=== PATIENT | female | born 1990 | race Caucasian/White ===

== ENCOUNTER → 2020-12-26 15:46 | Outpatient (CLI) | payer OTHER, MEDICAID, SELFPAY ==
[2020-12-26] MEDS: COVID-19 VACC #1, MRNA(MOD) 100 MCG/0.5 ML VIAL IM (15:58)
== END ==
PROVIDERS: PCP Family Medicine; Visit Provider Internal Medicine
DX: Z23 Encounter for immunization (principal)
CPT/HCPCS: 0011A; 91301

== ENCOUNTER → 2021-01-24 14:54 | Outpatient (CLI) | payer OTHER, MEDICAID, SELFPAY ==
[2021-01-24] MEDS: COVID-19 VACC #2, MRNA(MOD) 100 MCG/0.5 ML VIAL IM (15:01)
== END ==
PROVIDERS: PCP Family Medicine; Visit Provider Internal Medicine
DX: Z23 Encounter for immunization (principal)
CPT/HCPCS: 0012A; 91301

== ENCOUNTER → 2022-05-17 09:12 | Outpatient (CLI) | payer OTHER, MEDICAID, SELFPAY ==
[2022-05-17 10:31] LABS: Add Manual Diff / Slide Review NO; Basophils Absolute Auto 0 /uL (0-100); Basophils Percent Auto 0.5 % (0-2); Eosinophils Absolute Auto 200 /uL (0-450); Eosinophils Percent Auto 3.6 % (2-4); Hemoglobin 14.3 g/dL (12.0-16.0); Lymphocytes Absolute Auto 2100 /uL (1100-4500); Lymphocytes Percent Auto 43.9 % (25-40); Mean Corpuscular Hemoglobin 30.1 PG (26-34); Mean Corpuscular Volume 88.6 fL (80-100); Monocytes Absolute Auto 300 /uL (0-900); Neutrophils Absolute Auto 2200 /uL (1500-7000); Platelet Count 328 X10^3/uL (150-400); Red Blood Cell Count 4.74 X10^6/uL (4.0-5.2); Red Cell Distribution Width 12.7 % (11.6-14.8); White Blood Cell Count 4.9 X10^3/uL (4.5-11.0)
[2022-05-17 10:52] LABS: Hemoglobin A1C% w Est Avg Glu 5.5 % (4.0-6.0)
[2022-05-17 10:57] LABS: Erythrocyte Sedimentation Rate 9 MM/HR (0-20)
[2022-05-17 11:10] LABS: Alanine Aminotransferase 58 IU/L (<35); Albumin 4.3 g/dL (3.5-5.0); Alkaline Phosphatase 63 U/L (38-126); Aspartate Aminotransferase 29 IU/L (14-36); BUN Creatinine Ratio 18.1 (6-22); Bilirubin Total 0.5 mg/dL (0.2-1.3); Blood Urea Nitrogen 15 mg/dL (7-17); C-Reactive Protein Quant 0.7 mg/dL (<1.0); Calcium 9.1 mg/dL (8.4-10.2); Carbon Dioxide 30 mmol/L (22-32); Chloride 104 mmol/L (98-107); Estimated Glomerular Filt Rate > 60 mL/min (>60); Glucose 98 mg/dL (70-100); Potassium 4.5 mmol/L (3.4-5.1); Sodium 141 mmol/L (137-145); Total Protein 7.7 g/dL (6.3-8.2)
[2022-05-17 11:11] LABS: Albumin Globulin Ratio 1.3 (1.0-2.8); Cholesterol 196 mg/dL (140-199); Globulin 3.4 g/dL (1.7-4.1); HDL Cholesterol 36 mg/dL (40-60); HEMOLYSIS < 15 (0-50); LDL Cholesterol Calculated 139 mg/dL (<100); Triglycerides 105 mg/dL (35-150)
[2022-05-17 11:35] LABS: TSH w/ Reflex to FT4 1.02 uIU/mL (0.47-4.68)
[2022-05-17 11:37] LABS: Testosterone 85.5 ng/dL (5.71-77.0)
[2022-05-23 13:47] LABS: ANA Screen, IFA Negative (.)
== END ==
PROVIDERS: PCP Family Medicine; Referring Provider Family Medicine; Visit Provider Family Medicine
DX: L68.0 Hirsutism (principal); N91.2 Amenorrhea, unspecified; I73.00 Raynaud's syndrome without gangrene; R20.9 Unspecified disturbances of skin sensation
CPT/HCPCS: 36415; 80053; 80061; 83036; 83498; 84403; 84443; 85025; 85651; 86038; 86140

== ENCOUNTER → 2023-02-27 09:11 | Outpatient (CLI) | payer OTHER, MEDICAID, SELFPAY ==
[2023-02-27 10:18] LABS: Alanine Aminotransferase 30 IU/L (<35); Albumin 4.2 g/dL (3.5-5.0); Albumin Globulin Ratio 1.4 (1.0-2.8); Alkaline Phosphatase 67 U/L (38-126); Aspartate Aminotransferase 21 IU/L (14-36); BUN Creatinine Ratio 16.3 (6-22); Bilirubin Total 0.3 mg/dL (0.2-1.3); Blood Urea Nitrogen 14 mg/dL (7-17); Calcium 9.7 mg/dL (8.4-10.2); Carbon Dioxide 26 mmol/L (22-32); Chloride 103 mmol/L (98-107); Cholesterol 219 mg/dL (140-199); Estimated Glomerular Filt Rate > 60 mL/min (>60); Globulin 2.9 g/dL (1.7-4.1); Glucose 94 mg/dL (70-100); HDL Cholesterol 48 mg/dL (40-60); HEMOLYSIS < 15 (0-50); LDL Cholesterol Calculated 124 mg/dL (<100); Potassium 4.6 mmol/L (3.4-5.1); Sodium 137 mmol/L (137-145); Total Protein 7.1 g/dL (6.3-8.2); Triglycerides 237 mg/dL (35-150)
[2023-02-28 06:03] LABS: Labcorp Hemoglobin (Hb) A1c 5.2 % (4.8-5.6)
[2023-03-05 11:16] LABS: Percent Free Testosterone 1.54 % (0.50-2.80); Testosterone Free 0.93 ng/dL (0.10-0.85); Testosterone Total 60.1 ng/dL (10.0-55.0)
== END ==
PROVIDERS: PCP Family Medicine; Referring Provider Family Medicine; Visit Provider Family Medicine
DX: E28.2 Polycystic ovarian syndrome (principal); F84.0 Autistic disorder; L68.0 Hirsutism
CPT/HCPCS: 36415; 80053; 80061; 83036; 84402; 84403

== ENCOUNTER → 2024-01-01 13:44 | Outpatient (CLI) | payer OTHER, MEDICAID, SELFPAY ==
[2024-01-01 14:27] LABS: Influenza A - CEPHEID Flu A NEGATIVE (NEGATIVE); Influenza B - CEPHEID Flu B NEGATIVE (NEGATIVE); Respiratory Syncytial Virus Negative (Negative)
[2024-01-01 15:26] LABS: COVID-19 CEPHEID 4-PLEX PCR Negative (Negative)
== END ==
PROVIDERS: PCP Family Medicine; Visit Provider Nurse Practitioner Family
DX: R09.81 Nasal congestion (principal); R50.9 Fever, unspecified
CPT/HCPCS: 27400 ×2; 87635; 87420; 0241U

== ENCOUNTER → 2024-02-24 10:13 | Outpatient (CLI) | payer OTHER, MEDICAID, SELFPAY ==
[2024-02-24 11:26] LABS: Add Manual Diff / Slide Review NO; Basophils Absolute Auto 0 /uL (0-100); Basophils Percent Auto 0.3 % (0-2); Eosinophils Absolute Auto 100 /uL (0-450); Eosinophils Percent Auto 1.6 % (2-4); Hematocrit 36.7 % (36-46); Hemoglobin 12.7 g/dL (12.0-16.0); Lymphocytes Absolute Auto 2000 /uL (1100-4500); Lymphocytes Percent Auto 35.3 % (25-40); Mean Corpuscular HGB Conc 34.7 % (30-36); Mean Corpuscular Hemoglobin 30.4 PG (26-34); Mean Corpuscular Volume 87.5 fL (80-100); Monocytes Absolute Auto 400 /uL (0-900); Monocytes Percent Auto 6.5 % (3-14); Neutrophils Absolute Auto 3200 /uL (1500-7000); Neutrophils Percent Auto 56.3 % (50-75); Platelet Count 344 X10^3/uL (150-400); Red Cell Distribution Width 12.8 % (11.6-14.8); White Blood Cell Count 5.7 X10^3/uL (4.5-11.0)
[2024-02-24 11:40] LABS: Hemoglobin A1C% w Est Avg Glu 5.3 % (4.0-6.0)
[2024-02-24 11:54] LABS: Alanine Aminotransferase 21 IU/L (<35); Albumin 4.4 g/dL (3.5-5.0); Albumin Globulin Ratio 1.6 (1.0-2.8); Alkaline Phosphatase 68 U/L (38-126); Aspartate Aminotransferase 22 IU/L (14-36); BUN Creatinine Ratio 12.5 (6-22); Bilirubin Total 0.5 mg/dL (0.2-1.3); Blood Urea Nitrogen 12 mg/dL (7-17); Calcium 9.8 mg/dL (8.4-10.2); Carbon Dioxide 26 mmol/L (22-32); Chloride 103 mmol/L (98-107); Cholesterol 239 mg/dL (140-199); Estimated Glomerular Filt Rate > 60 mL/min (>60); Globulin 2.7 g/dL (1.7-4.1); Glucose 92 mg/dL (70-100); HDL Cholesterol 77 mg/dL (40-60); HEMOLYSIS < 15 (0-50); LDL Cholesterol Calculated 121 mg/dL (<100); Potassium 4.7 mmol/L (3.4-5.1); Sodium 136 mmol/L (137-145); Total Protein 7.1 g/dL (6.3-8.2); Triglycerides 205 mg/dL (35-150)
[2024-02-24 12:00] LABS: Creatinine Urine Random 26.59 mg/dL
[2024-02-24 12:08] LABS: Microalbumin Urine Random < 0.6 mg/dL (0-1.6)
[2024-02-24 12:21] LABS: TSH w/ Reflex to FT4 1.07 uIU/mL (0.47-4.68)
[2024-02-26 04:10] LABS: Apolipoprotein B 120 mg/dL (<90)
[2024-03-01 08:36] LABS: Percent Free Testosterone 1.63 % (0.50-2.80); Testosterone Free 0.82 ng/dL (0.10-0.85); Testosterone Total 50.6 ng/dL (10.0-55.0)
== END ==
PROVIDERS: PCP Family Medicine; Referring Provider Family Medicine; Visit Provider Family Medicine
DX: Z00.00 Encounter for general adult medical examination without abnormal findings (principal); E28.2 Polycystic ovarian syndrome; L68.0 Hirsutism; F84.0 Autistic disorder
CPT/HCPCS: 36415; 80053; 80061; 82043; 82172; 82570; 83036; 84402; 84403; 84443; 85025

== ENCOUNTER → 2024-07-23 12:21 | Outpatient (CLI) | payer MEDICARE, MEDICAID, SELFPAY ==
--- NOTE | 2024-07-23 12:24 | DI.RAD.S_ITS ---
PROCEDURE: FL UPPER GI SMALL BOWEL INDICATIONS: Vomiting of solids/liquids - gastroparesis(?) COMPARISON: None. FINDINGS: KUB: Preprocedural drug abuse treatment specialist film shows a normal bowel gas pattern. No suspicious abdominal calcifications. Visualized solid organ contours appear normal in size. No suspicious bony abnormalities. Esophagus: Air-contrast views demonstrate a normal mucosal pattern. On single-contrast views, there is normal peristalsis. No fixed strictures, extrinsic mass effects, or diverticula. No hiatal hernias or elicited gastroesophageal reflux. There is delayed transit of a calibrated barium tablet through the esophagus. Stomach: The gastric lumen is normally distensible, and has normal rugal fold thickness. No mucosal masses or ulcers. The pylorus and duodenal bulb have a normal morphology. Small bowel: Duodenal folds appear normal in thickness. There is normal transit time of barium through the small intestine. Small bowel loops appear normal in caliber throughout. Jejunal and ileal folds are smooth and normal in thickness. No strictures, intraluminal masses, or extrinsic mass effects. IMPRESSION: 1. Small reducible hiatal hernia. 2. Delayed passage of a calibrated barium tablet through the gastroesophageal junction. 3. Small bowel transit time within normal limits at approximately 2.5 hours. Approved by: Arnulfo Meza M.D. on 07/23/2024 at 16:27
== END ==
PROVIDERS: PCP Family Medicine; Referring Provider Family Medicine; Visit Provider Family Medicine
DX: R11.10 Vomiting, unspecified (principal); F84.0 Autistic disorder; K44.9 Diaphragmatic hernia without obstruction or gangrene
CPT/HCPCS: 74240; 74248

== ENCOUNTER 2024-10-20 14:08 | Day surgery (SDC) | payer MEDICARE, MEDICAID, SELFPAY ==
[2024-10-20] VITALS (7 sets, daily range): BP systolic 103–114; BP diastolic 61–78; PULSE 77–94; RESP 12–16; TEMP 36.2–36.4; O2SAT 92–100
--- NOTE | 2024-10-20 | PATH_ITS ---
[facility] Accession Number: [id number] No. of containers..04 Tissue . 01 Material submitted: . PART A: stomach - STOMACH PART B: small bowel - SMALL BOWEL PART C: esophagus - ESOPHAGUS PART D: colon - COLON . 01 Clinical history: . D) DIARRHEA . 01 Diagnosis: Part A: STOMACH: Gastric mucosa with minimal chronic inflammation. No Helicobacter organisms identified on H/E stain. No intestinal metaplasia, dysplasia, or malignancy identified. . Part B: SMALL BOWEL: Small bowel mucosa with no diagnostic alterations. No active inflammation and no evidence of celiac disease. . Part C: ESOPHAGUS: Squamous mucosa with no diagnostic alterations. Eosinophils are not increased. . Part D: COLON: Colonic mucosa with no diagnostic alterations. No active inflammation, granulomas, dysplasia, or malignancy identified. No evidence of colitis. [facility] 10/22/2024 1500 Local . 01 Electronically signed: . Moises Centeno MD, Pathologist NPI- [id number] . 01 Gross description: . A. Received in formalin with two patient identifiers and 1. Stomach biopsy, is a single mathews soft tissue fragment 0.5 cm in greatest dimension. Submitted in cassette A1. . B. Received in formalin with two patient identifiers and 2. Small bowel biopsy, are two mathews soft tissue fragments both measuring 0.4 cm in greatest dimension. Submitted in cassette B1. . C. Received in formalin with two patient identifiers and 3. Esophageal biopsy, are four mathews soft tissue fragments 0.2 to 0.5 cm in greatest dimension. Submitted in cassette C1. . D. Received in formalin with two patient identifiers and 4. Colon biopsy, are six mathews soft tissue fragments 0.3 to 0.4 cm in greatest dimension. Submitted in cassette D1. ([id number]) /JU 10/22/2024 1500 Local . 01 Pathologist provided ICD-10: K29.30, R19.7 . 01 CPT . 103736, 597705, 515996, 429886 Specimen Comment: A courtesy copy of this report has been sent to [phone] Performed at: [address] [id number] MD Moises Centeno MD Phone: [phone]
--- NOTE | 2024-10-20 14:23 | P.OP.EGD&C_ITS ---
Operative Date/Time/Diagnoses Date of procedure: 10/20/24 Pre-op diagnosis: See indication and findings Procedure & Clinicians Study performed: EGD and colonoscopy Indications: GE reflux with globus sensation dyspepsia nausea vomiting and diarrhea Surgeon: Nolan Chandler Procedure Notes Procedure in detail: After informed consent was obtained the patient was placed in left lateral decubitus position. The video upper scope placed into the oropharynx with the patient's help swallowed into the esophagus. The esophagus stomach and duodenal were carefully examined. On withdrawal, retroflexed view the GE junction was performed. The scope was removed. The patient tolerated the procedure well. The patient was then turned in the colonoscope substituted. This easily passed the cecum. On slow withdrawal mucosa was carefully examined. The scope was removed. The patient tolerated the procedure well. Blood loss none Complications none Sedation mac Findings EGD 1. Very mild sense of longitudinal furrows in the esophagus biopsies taken to rule out eosinophilic esophagitis 2. Patchy gastric erythema in the stomach biopsies taken to rule out Helicobacter 3. Normal duodenal bulb and sweep biopsies taken to rule out celiac Colonoscopy 1. Normal colonoscopy to cecum. Random biopsies taken to rule out microscopic colitis Will be in touch regarding the biopsy results. 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
--- NOTE | 2024-10-20 14:23 | PM.PREOP ---
Pre-operative Note Interval Note History & Physical reviewed/Exam performed by Physician: Yes Changes to H&P: No ASA Class (for procedural sedation): II
== END 2024-10-20 16:06 | disposition home or self-care (01) ==
PROVIDERS: PCP Family Medicine; Referring Provider Internal Medicine Gastroenterology; Visit Provider Internal Medicine Gastroenterology
PROC: 0DJ08ZZ Inspection of Upper Intestinal Tract, Via Natural or Artificial Opening Endoscopic (ICD-10-PCS; CPT 45380; principal; 2024-10-20 14:30)
PROC: 0DJD8ZZ Inspection of Lower Intestinal Tract, Via Natural or Artificial Opening Endoscopic (ICD-10-PCS; CPT 45378; 2024-10-20 14:30)
DX: R19.7 Diarrhea, unspecified (principal); R11.2 Nausea with vomiting, unspecified; K21.9 Gastro-esophageal reflux disease without esophagitis; R10.13 Epigastric pain; K29.50 Unspecified chronic gastritis without bleeding
CPT/HCPCS: 45380; 43239; J2704

== ENCOUNTER → 2025-07-08 09:03 | Outpatient (CLI) | payer MEDICARE, MEDICAID, SELFPAY ==
[2025-07-08 10:36] LABS: TSH w/ Reflex to FT4 < 0.02 uIU/mL (0.47-4.68)
[2025-07-08 11:01] LABS: Free T4, Direct Thyroxine 1.10 ng/dL (0.78-2.19)
== END ==
LOC: LAB 09:04
PROVIDERS: PCP Family Medicine; Referring Provider Family Medicine; Visit Provider Family Medicine
DX: E05.90 Thyrotoxicosis, unspecified without thyrotoxic crisis or storm (principal); E28.2 Polycystic ovarian syndrome
CPT/HCPCS: 36415; 84439; 84443

== ENCOUNTER → 2025-08-04 07:36 | Outpatient (CLI) | payer MEDICARE, MEDICAID, SELFPAY ==
--- NOTE | 2025-08-04 07:37 | DI.NM.S_ITS ---
PROCEDURE: NM UPTAKE AND SCAN RADIOPHARMACEUTICAL: 417 ???Ci I-123 sodium iodide by mouth. INDICATIONS: Thyroid scintigraphy and radioactive iodine uptake TECHNIQUE: I-123 sodium iodide was administered orally. Anterior neck images were obtained, and iodine uptake by the thyroid gland calculated using paint pourer's software. COMPARISON: [facility], , THYROID, 08/04/2025, 14:29. FINDINGS: Morphology: The thyroid gland has normal morphology and uniform activity. No 'cold' or 'hot' thyroid nodules are identified. Uptake: 6 hour thyroid uptake is 8.9 %; normal ranges are from 6-18%. 24 hour thyroid uptake is 16.3 % ; normal ranges are from 10-30%. IMPRESSION: No hot or cold nodule identified. Normal 6 hour and 24 hour I-123 uptake. Dictated by: Brunilda Luevano M.D. on 08/05/2025 at 12:50 Approved by: Brunilda Luevano M.D. on 08/05/2025 at 12:53
== END ==
LOC: NUCM 07:37
PROVIDERS: PCP Family Medicine; Referring Provider Family Medicine; Visit Provider Family Medicine
DX: E03.9 Hypothyroidism, unspecified (principal); R89.9 Unspecified abnormal finding in specimens from other organs, systems and tissues
CPT/HCPCS: 76536; 78014; A9516